=== PATIENT | male | born 1985 | race Caucasian/White ===

== ENCOUNTER 2024-07-23 08:44 | Emergency (ER) | payer BC, OTHER ==
[2024-07-23 08:52] VITALS: BP 111/67; PULSE 58; RESP 16; TEMP 97.5; BMI 24.3
[2024-07-23 09:59] LABS: ABSOLUTE IMMATURE GRANULOCYTES 0.02 x10^3/uL (0.0-0.031); BASOPHILS # 0.03 x10^3/uL (0.01-0.08); EOSINOPHIL % 2.6 % (0.8-7.0); EOSINOPHILS # 0.19 x10^3/uL (0.04-0.54); HEMATOCRIT 40.8 % (40.1-51.0); MCHC 34.3 g/dl (32.3-36.5); MEAN CELL VOLUME 93.8 fl (79.0-92.2); MEAN PLT VOLUME 10.1 fl (9.4-12.4); MONOCYTE # 0.62 x10^3/uL (0.30-0.82); MONOCYTE % 8.4 % (5.3-12.2); PLATELET COUNT 250 x10^3/uL (163-337); RDW 12.8 % (12.0-15.6)
[2024-07-23 10:16] LABS: ALBUMIN 4.4 g/dl (3.4-5.0); BILIRUBIN,TOTAL 0.3 mg/dl (0.2-1); CALCIUM 9.2 mg/dl (8.5-10.1); CREATININE 0.8 mg/dl (0.6-1.3); POTASSIUM 4.3 mmol/L (3.5-5.1); TOT PROT 6.5 g/dl (6.4-8.2)
== END 2024-07-23 14:31 | disposition home or self-care (01) ==
LOC: FER 08:44
DX: R04.2 Hemoptysis (principal); R00.1 Bradycardia, unspecified; R05.9 Cough, unspecified
CPT/HCPCS: 36415; 71046-TC-FY; 71275-TC; 80053; 84484; 85025; 85379; 93005; 99285-25; Q9967

== ENCOUNTER 2024-07-23 21:28 | Observation (INO) | payer BC, OTHER ==
[2024-07-24] MEDS ORDERED: cefTRIAXone SODIUM 1 GM VIAL ONE (00:45)
[2024-07-24] MEDS ORDERED: AZITHROMYCIN 500 MG VIAL IVPB ONE (00:45)
[2024-07-24 01:07] LABS: ABSOLUTE IMMATURE GRANULOCYTES 0.04 x10^3/uL (0.0-0.031); BASOPHILS # 0.04 x10^3/uL (0.01-0.08); EOSINOPHIL % 1.5 % (0.8-7.0); EOSINOPHILS # 0.17 x10^3/uL (0.04-0.54); HEMATOCRIT 40.8 % (40.1-51.0); HEMOGLOBIN 14.1 g/dL (13.7-17.5); MCHC 34.6 g/dl (32.3-36.5); MEAN CELL VOLUME 93.4 fl (79.0-92.2); MEAN PLT VOLUME 10.4 fl (9.4-12.4); MONOCYTE # 0.59 x10^3/uL (0.30-0.82); PLATELET COUNT 259 x10^3/uL (163-337); RDW 12.9 % (12.0-15.6)
[2024-07-24] MEDS: AZITHROMYCIN IVPB 500 MG in DEXTROSE 5%-WATER - 250 ML IVPB ONE (01:14)
[2024-07-24 01:33] LABS: POTASSIUM 4.4 mmol/L (3.5-5.1)
[2024-07-24 01:35] LABS: CALCIUM 9.5 mg/dL (8.5-10.1)
[2024-07-24 01:39] LABS: CREATININE 0.7 mg/dL (0.55-1.3)
[2024-07-24 01:40] LABS: BILIRUBIN,TOTAL 0.6 mg/dL (0.2-1); TOT PROT 7.2 g/dl (6.4-8.2)
[2024-07-24 04:07] VITALS: BMI 24.2
[2024-07-24 08:19] LABS: ABSOLUTE IMMATURE GRANULOCYTES 0.02 x10^3/uL (0.0-0.031); BASOPHILS # 0.03 x10^3/uL (0.01-0.08); EOSINOPHIL % 1.9 % (0.8-7.0); EOSINOPHILS # 0.14 x10^3/uL (0.04-0.54); HEMATOCRIT 39.8 % (40.1-51.0); HEMOGLOBIN 13.8 g/dL (13.7-17.5); MCHC 34.7 g/dl (32.3-36.5); MEAN CELL VOLUME 93.9 fl (79.0-92.2); MEAN PLT VOLUME 10.4 fl (9.4-12.4); MONOCYTE # 0.59 x10^3/uL (0.30-0.82); MONOCYTE % 8.2 % (5.3-12.2); PLATELET COUNT 242 x10^3/uL (163-337); RDW 12.9 % (12.0-15.6)
[2024-07-24 08:49] LABS: CALCIUM 9.2 mg/dl (8.5-10.1); CREATININE 0.8 mg/dl (0.6-1.3); POTASSIUM 4.3 mmol/L (3.5-5.1)
[2024-07-24 09:49] LABS: URINE BARBITURATES NEGATIVE (NEGATIVE)
[2024-07-24 09:50] LABS: COCAINE, UR NEGATIVE (NEGATIVE); METHADONE, UR NEGATIVE (NEGATIVE); PHENCYCLIDINE,URINE NEGATIVE (NEGATIVE)
[2024-07-24 09:51] LABS: OPIATES, URI NEGATIVE (NEGATIVE)
[2024-07-24 09:52] LABS: URINE AMPHETAMINES NEGATIVE (NEGATIVE); URINE BENZODIAZEPINES NEGATIVE (NEGATIVE)
[2024-07-24] MEDS: SODIUM CHLORIDE 1,000 ML IV SCH (10:05)
[2024-07-24] MEDS: AZITHROMYCIN IVPB 500 MG in DEXTROSE 5%-WATER - 250 ML IVPB SCH (10:06)
[2024-07-24] MEDS: guaiFENesin/CODEINE 10 ML UNIT-DOSE CUPS PO PRN (21:04)
[2024-07-25] MEDS: BENZONATATE 200 MG CAPSULE PO ONE (02:46)
[2024-07-25 08:21] LABS: ABSOLUTE IMMATURE GRANULOCYTES 0.02 x10^3/uL (0.0-0.031); BASOPHILS # 0.02 x10^3/uL (0.01-0.08); EOSINOPHIL % 2.1 % (0.8-7.0); EOSINOPHILS # 0.17 x10^3/uL (0.04-0.54); HEMATOCRIT 41.7 % (40.1-51.0); HEMOGLOBIN 14.6 g/dL (13.7-17.5); MEAN CELL VOLUME 92.7 fl (79.0-92.2); MEAN PLT VOLUME 10.7 fl (9.4-12.4); MONOCYTE # 0.64 x10^3/uL (0.30-0.82); MONOCYTE % 7.9 % (5.3-12.2); PLATELET COUNT 227 x10^3/uL (163-337); RDW 12.6 % (12.0-15.6)
[2024-07-25 09:09] LABS: ALBUMIN 4.4 g/dl (3.4-5.0); BILIRUBIN,TOTAL 0.7 mg/dl (0.2-1); CALCIUM 9.4 mg/dl (8.5-10.1); CREATININE 0.8 mg/dl (0.6-1.3); POTASSIUM 4.3 mmol/L (3.5-5.1); TOT PROT 6.5 g/dl (6.4-8.2)
[2024-07-25] MEDS: CEFTRIAXONE 1 GM in DEXTROSE 5%-WATER - 50 ML IVPB SCH (11:19)
[2024-07-26] MEDS: ALBUTEROL SO4 HFA INHALER IH PRN (10:24)
[2024-07-27 07:48] LABS: ABSOLUTE IMMATURE GRANULOCYTES 0.02 x10^3/uL (0.0-0.031); BASOPHILS # 0.03 x10^3/uL (0.01-0.08); EOSINOPHIL % 2.8 % (0.8-7.0); HEMATOCRIT 38.4 % (40.1-51.0); HEMOGLOBIN 13.5 g/dL (13.7-17.5); MCHC 35.2 g/dl (32.3-36.5); MEAN CELL VOLUME 92.1 fl (79.0-92.2); MEAN PLT VOLUME 10.5 fl (9.4-12.4); MONOCYTE # 0.57 x10^3/uL (0.30-0.82); MONOCYTE % 7.9 % (5.3-12.2); PLATELET COUNT 220 x10^3/uL (163-337); RDW 12.3 % (12.0-15.6)
[2024-07-27 08:51] LABS: ALBUMIN 4.3 g/dl (3.4-5.0); BILIRUBIN,TOTAL 0.6 mg/dl (0.2-1); CALCIUM 9.2 mg/dl (8.5-10.1); CREATININE 0.8 mg/dl (0.6-1.3); POTASSIUM 4.4 mmol/L (3.5-5.1); TOT PROT 6.3 g/dl (6.4-8.2)
[2024-07-27 10:03] VITALS: BP 98/52; PULSE 57; RESP 18; TEMP 97.7
[2024-07-27] MEDS: SODIUM CHLORIDE 0.9% 500 ML INFUS.BAG IV ONE (10:08)
== END 2024-07-27 13:01 | disposition home or self-care (01) ==
LOC: FER 21:28 → FM/S 07-24 02:31 → UNDOADMOB 07-24 02:36 → FM/S 07-24 02:36
PROVIDERS: ADMIT Internal Medicine
PROC: 3E03329 Introduction of Other Anti-infective into Peripheral Vein, Percutaneous Approach (ICD-10-PCS; principal; 2024-07-24)
PROC: 3E0337Z Introduction of Electrolytic and Water Balance Substance into Peripheral Vein, Percutaneous Approach (ICD-10-PCS; 2024-07-24)
DX: J18.9 Pneumonia, unspecified organism (principal); R04.2 Hemoptysis; R55 Syncope and collapse; F12.90 Cannabis use, unspecified, uncomplicated; F17.210 Nicotine dependence, cigarettes, uncomplicated
CPT/HCPCS: 36415; 70450-TC; 72125-TC; 80048; 80053; 80307; 81003; 84443; 85025; 86038; 86480; 86850; 86900; 86901; 87040; 87070; 87086; 87205; 87899; 93306-TC; 99285-25; G0378